=== PATIENT | female | born 1990 | race Caucasian/White ===

== ENCOUNTER 2017-03-19 16:36 | Emergency (ER) | payer OTHER ==
[2017-03-19 17:52] VITALS: BP 111/70
--- NOTE | 2017-03-19 18:05 | UC ---
UC General HPI - HPI Summary HPI Summary: Patient is on lexapro and is switching doctors, ran out of her medication and will not see new doctor for 9 days. denies any physical ailment at this time. - History of Current Complaint Chief Complaint: UCMedRefill Stated Complaint: MEDICINE REFILL Time Seen by Provider: 03/19/17 17:54 Hx Obtained From: Patient Current Severity: None - Allergy/Home Medications Allergies/Adverse Reactions: Allergies Allergy/AdvReac Type Severity Reaction Status Date / Time No Known Allergies Allergy Verified 05/17/15 19:51 Home Medications: Home Medications Control 03/19/17 [History] PMH/Surg Hx/FS Hx/Imm Hx Previously Healthy: Yes - Surgical History Surgical History: Yes Surgery Procedure, Year, and Place: 2007 - Family History Known Family History: Positive: Other Negative: Cardiac Disease, Hypertension - Social History Alcohol Use: None Substance Use Type: None Smoking Status (MU): Never Smoked Tobacco Review of Systems Skin: Negative Eyes: Blurred Vision ENT: Negative Respiratory: Negative Cardiovascular: Negative Gastrointestinal: Negative Genitourinary: Negative Motor: Negative Neurovascular: Negative Musculoskeletal: Negative Neurological: Negative Psychological: Negative All Other Systems Reviewed And Are Negative: Yes Physical Exam Triage Information Reviewed: Yes Appearance: Well-Appearing, No Pain Distress, Well-Nourished Vital Signs: Initial Vital Signs Temp 98.0 F 03/19/17 17:49 Pulse 87 03/19/17 17:49 Resp 18 03/19/17 17:49 BP 111/70 03/19/17 17:49 Pulse Ox 100 03/19/17 17:49 Vital Signs Reviewed: Yes Eye Exam: Normal Eyes: Positive: Conjunctiva Clear ENT Exam: Normal ENT: Positive: Hearing grossly normal, Pharynx normal, TMs normal Dental Exam: Normal Neck exam: Normal Neck: Positive: Supple, Nontender, No Lymphadenopathy Respiratory Exam: Normal Respiratory: Positive: Chest non-tender, Lungs clear, Normal breath sounds Cardiovascular Exam: Normal Cardiovascular: Positive: RRR, No Murmur, Pulses Normal Abdominal Exam: Normal Abdomen Description: Positive: Nontender, No Organomegaly, Soft Bowel Sounds: Positive: Present Musculoskeletal Exam: Normal Neurological Exam: Normal Neurological: Positive: Alert, Muscle Tone Normal Psychological Exam: Normal Psychological: Positive: Normal Response To Family Skin Exam: Normal Course/Dx - Course Course Of Treatment: hx obtained, exam performed, meds reviewed, med refill given - Differential Dx - Multi-Symptom Provider Diagnoses: depression Discharge - Discharge Plan Condition: Stable Disposition: HOME Patient Education Materials: Escitalopram (By mouth)
== END 2017-03-19 18:13 | disposition home or self-care (01) ==
LOC: UCEAST 16:36
DX: F32.9 Major depressive disorder, single episode, unspecified (principal)
CPT/HCPCS: 99212; G0463

== ENCOUNTER 2022-06-05 12:43 | Observation (INO) ==
[2022-06-05 13:30] LABS: ABS Eosinophils 0.1 10^3/ul (0-0.6); ABS Lymphocytes 1.2 10^3/ul (1.0-4.8); ABS Monocytes 0.4 10^3/ul (0-0.8); ABS Neutrophils 4.6 10^3/ul (1.5-7.7); Eosinophil % 2.1 %; Hematocrit 42 % (35-47); Hemoglobin 13.7 g/dL (12.0-16.0); Lymphocyte % 18.8 %; Mean Corpuscular HGB Conc 32 g/dL (31-36); Mean Corpuscular Hemoglobin 26 pg (27-31); Mean Corpuscular Volume 82 fL (80-97); Mean Platelet Volume 6.8 fL (7.4-10.4); Platelet Count 276 10^3/uL (150-450); Red Blood Count 5.19 10^6 /uL (3.70-4.87); Red Cell Distribution Width 17 % (10-15); White Blood Count 6.4 10^3/uL (3.5-10.8)
[2022-06-05 14:09] LABS: Albumin 4.5 g/dL (3.2-5.2); Albumin/Globulin Ratio 1.5 (1-3); Calcium 10.2 mg/dL (8.6-10.3); Potassium 4.3 mmol/L (3.5-5.0); Total Bilirubin 2.9 mg/dL (0.2-1.0); Total Protein 7.5 g/dL (6.4-8.9); eGFR CKD-EPI 93.3 (>60)
[2022-06-05] MEDS ORDERED: Iohexol 350 (CONTRAST) 500 ML MDV IV ONE (16:22)
[2022-06-05] MEDS ORDERED: Ondansetron 4 mg VIAL 2 MG/ML 2 ml VIAL IV PRN (19:27)
[2022-06-05] MEDS ORDERED: Lactated Ringers 1000 ml BAG 1,000 ML IV ONE (19:32)
[2022-06-05] MEDS ORDERED: Morphine 2 MG/ML SYRINGE IV PRN (19:39)
[2022-06-05] MEDS ORDERED: Acetaminophen IV 1 GM/100ML 100 ML IV PRN (19:41)
[2022-06-05 19:50] LABS: Albumin/Globulin Ratio 1.4 (1-3); Direct Bilirubin 0.4 mg/dL (0.03-0.18); Globulin 2.8 g/dL (2-4); Indirect Bilirubin 0.8 mg/dL (0.3-1.0); Total Bilirubin 1.2 mg/dL (0.2-1.0); Total Protein 6.8 g/dL (6.4-8.9)
[2022-06-05] MEDS: Lactated Ringers 1000 ml BAG 1,000 ML IV SCH (20:12)
[2022-06-06] MEDS: Lactated Ringers 1000 ml BAG 1,000 ML IV SCH (00:34)
[2022-06-06] MEDS ORDERED: Lactated Ringers 1000 ml BAG 1,000 ML IV SCH (07:33)
[2022-06-06] MEDS: DULoxetine DR 30 mg CAP PO SCH ×2 (08:19→12:05)
[2022-06-06] MEDS: ATOMOXETINE 18 MG PO SCH (08:19)
[2022-06-06 09:31] LABS: Hematocrit 37 % (35-47); Hemoglobin 11.9 g/dL (12.0-16.0); Mean Corpuscular HGB Conc 32 g/dL (31-36); Mean Corpuscular Hemoglobin 26 pg (27-31); Mean Corpuscular Volume 82 fL (80-97); Mean Platelet Volume 6.7 fL (7.4-10.4); Platelet Count 236 10^3/uL (150-450); Red Blood Count 4.51 10^6 /uL (3.70-4.87); Red Cell Distribution Width 16 % (10-15); White Blood Count 5.5 10^3/uL (3.5-10.8)
[2022-06-06 10:14] LABS: Albumin 3.9 g/dL (3.2-5.2); Albumin/Globulin Ratio 1.6 (1-3); Calcium 9.6 mg/dL (8.6-10.3); Globulin 2.5 g/dL (2-4); Magnesium 1.7 mg/dL (1.9-2.7); Potassium 4.6 mmol/L (3.5-5.0); Total Bilirubin 0.8 mg/dL (0.2-1.0); Total Protein 6.4 g/dL (6.4-8.9)
[2022-06-06] MEDS ORDERED: Dextrose 50% VIAL 50 ml IV ONE (11:19)
[2022-06-06] MEDS ORDERED: Magnesium Sulfate 2 gm BAG 2 GM/50 ML BAG IVPB ONE (11:20)
[2022-06-06] MEDS ORDERED: Dextrose 50% Syringe 50 ml 25 GM/50 ML SYRINGE IV PUSH ONE (12:00)
[2022-06-06] MEDS: D5W 1/2 NS 1000 ml BAG 1,000 ML IV SCH (12:12)
[2022-06-07 06:19] LABS: ABS Eosinophils 0.2 10^3/ul (0-0.6); ABS Lymphocytes 1.7 10^3/ul (1.0-4.8); ABS Monocytes 0.3 10^3/ul (0-0.8); ABS Neutrophils 2.3 10^3/ul (1.5-7.7); Eosinophil % 4.6 %; Hematocrit 33 % (35-47); Hemoglobin 10.9 g/dL (12.0-16.0); Lymphocyte % 36.8 %; Mean Corpuscular HGB Conc 33 g/dL (31-36); Mean Corpuscular Hemoglobin 27 pg (27-31); Mean Corpuscular Volume 82 fL (80-97); Mean Platelet Volume 6.7 fL (7.4-10.4); Platelet Count 221 10^3/uL (150-450); Red Blood Count 4.05 10^6 /uL (3.70-4.87); Red Cell Distribution Width 16 % (10-15); White Blood Count 4.5 10^3/uL (3.5-10.8)
[2022-06-07 06:34] LABS: Albumin 3.4 g/dL (3.2-5.2); Albumin/Globulin Ratio 1.5 (1-3); Calcium 8.9 mg/dL (8.6-10.3); Globulin 2.2 g/dL (2-4); Magnesium 1.8 mg/dL (1.9-2.7); Potassium 3.9 mmol/L (3.5-5.0); Total Bilirubin 0.5 mg/dL (0.2-1.0); Total Protein 5.6 g/dL (6.4-8.9); eGFR CKD-EPI 113.9 (>60)
[2022-06-07] MEDS ORDERED: Magnesium Sulfate 2 gm BAG 2 GM/50 ML BAG IVPB ONE (07:06)
[2022-06-07] MEDS ORDERED: ceFAZolin 2 GM PREMIX 2 GM/50 ML BAG IV ONE (08:00)
[2022-06-07] MEDS ORDERED: Famotidine IV 10 MG/ML 2 ml VIAL (20 mg) IV ONE (08:18)
[2022-06-07] MEDS ORDERED: Dexamethasone IV 4 MG/ML VIAL 1 ml VIAL IV SLOW PU ONE (08:18)
[2022-06-07] MEDS ORDERED: Buffered Lidocaine 1% SYRIN 1 ml INTRADERM ONE (08:18)
[2022-06-07] MEDS ORDERED: Lactated Ringers 1000 ml BAG 1,000 ML IV SCH (09:00)
[2022-06-07] MEDS ORDERED: Dexamethasone IV 4 MG/ML VIAL 1 ml VIAL ONE (09:21)
[2022-06-07] MEDS ORDERED: Famotidine IV 10 MG/ML 2 ml VIAL (20 mg) ONE (09:22)
[2022-06-07] MEDS ORDERED: Midazolam 2 mg/2 ml VIAL 1 mg/ml 2 ml VIAL (2 mg) ONE (10:16)
[2022-06-07] MEDS ORDERED: fentaNYL 100 mcg/2 ml 50 MCG/ML VIAL ONE ×2 (10:16→12:09)
[2022-06-07] MEDS ORDERED: Lidocaine 2% PF 5 ML VIAL ONE (10:16)
[2022-06-07] MEDS ORDERED: Propofol 10 MG/ML 20 ML BTL ONE (10:16)
[2022-06-07] MEDS ORDERED: Rocuronium 50 mg VIAL 10 mg/ml 5 ml VIAL (50 mg) ONE (10:16)
[2022-06-07] MEDS ORDERED: Bupivacaine 0.25% SDV 30 ML ONE (11:08)
[2022-06-07] MEDS ORDERED: Prochlorperazine 5 mg/ml 2 ml VIAL (10 mg) IV PRN (11:44)
[2022-06-07] MEDS ORDERED: Naloxone 0.4 mg VIAL 0.4 mg/ml 1 ml VIAL IV PRN (11:44)
[2022-06-07] MEDS ORDERED: oxyCODONE/Acetamin 5/325 mg TAB PO PRN ×2 (11:44→14:24)
[2022-06-07] MEDS ORDERED: fentaNYL 100 mcg/2 ml 50 MCG/ML VIAL IV PRN (11:44)
[2022-06-07] MEDS ORDERED: HYDROcodone/ACETAMIN 5/325 mg TAB PO PRN (11:44)
[2022-06-07] MEDS ORDERED: Labetalol IV 5 MG/ML 20 ml VIAL ONE (12:16)
[2022-06-07] MEDS ORDERED: Ondansetron 4 mg VIAL 2 MG/ML 2 ml VIAL ONE (12:36)
[2022-06-07] MEDS ORDERED: Sugammadex 500 MG/5 ML 5 ml VIAL IV PUSH ONE (12:37)
[2022-06-07] MEDS ORDERED: Atropine 1 MG/ML INJ 1 ML VIAL ONE (12:54)
[2022-06-07 15:23] LABS: Calcium 9.8 mg/dL (8.6-10.3); Potassium 4.3 mmol/L (3.5-5.0); eGFR CKD-EPI 119.9 (>60)
[2022-06-07 15:34] LABS: TSH Ultra Thyroid Stim Horm 1.47 mcIU/mL (0.34-5.60)
[2022-06-07] MEDS: D5W 1/2 NS 1000 ml BAG 1,000 ML IV SCH (15:59)
[2022-06-07] MEDS: DULoxetine DR 30 mg CAP PO SCH (16:09)
[2022-06-07] MEDS: ATOMOXETINE 18 MG PO SCH (16:11)
[2022-06-07] MEDS ORDERED: D5W 1/2 NS 1000 ml BAG 1,000 ML IV SCH (16:32)
[2022-06-07] MEDS ORDERED: Polyethylene Glycol 3350 17 GM PACKET PO PRN (16:34)
[2022-06-08 08:28] VITALS: BP 136/91
[2022-06-08] MEDS ORDERED: CMC: Atomoxetine 18 mg CAP (NF) PO SCH (09:00)
[2022-06-08] MEDS ORDERED: DULoxetine DR 30 mg CAP PO SCH (09:00)
== END 2022-06-08 12:35 | disposition home or self-care (01) ==
LOC: EDHOLD 12:43 → ED 12:43 → SUATTDRO 19:16 → EDHOLD 21:57 → SSU 22:12
PROVIDERS: ADMIT Internal Medicine; ATTEND Surgery Surgical Critical Care